=== PATIENT | male | born 2000 | race Caucasian/White ===

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

== ENCOUNTER 2021-09-03 10:15 | Emergency (ER) | payer MEDICAID ==
[~2021-09-03 10:15] MED LIST: BACTROBAN OINT22 GM EXT
== END 2021-09-03 13:10 | disposition short-term general hospital (02) ==
LOC: ER1 10:15
DX: S52.602B Unspecified fracture of lower end of left ulna, initial encounter for open fracture type I or II (principal); S61.432A Puncture wound without foreign body of left hand, initial encounter; Z20.822 Contact with and (suspected) exposure to COVID-19; F17.200 Nicotine dependence, unspecified, uncomplicated; W34.010A Accidental discharge of airgun, initial encounter
CPT/HCPCS: 73130; 90471; 90714; 96374; 96375; 99285; J0690; J2270; J2405; U0002

== ENCOUNTER 2021-12-01 09:54 | Emergency (ER) | payer OTHER ==
[2021-12-01] MEDS ORDERED: BACTROBAN OINT22 GM EXT (11:56)
[2021-12-01] MEDS ORDERED: NAPROXEN500 MG PO (11:56)
== END 2021-12-01 12:08 | disposition home or self-care (01) ==
LOC: ER1 09:54
DX: S61.512A Laceration without foreign body of left wrist, initial encounter (principal); W26.8XXA Contact with other sharp object(s), not elsewhere classified, initial encounter; Y92.009 Unspecified place in unspecified non-institutional (private) residence as the place of occurrence of the external cause
CPT/HCPCS: 12002; 73110; 99283